=== PATIENT | male | born 1960 | race Two or more races ===

== ENCOUNTER → 2017-05-28 17:04 | Outpatient (CLI) | payer OTHER ==
[~2017-05-28 17:04] MED LIST: COZAAR25 MG PO
== END | disposition home or self-care (01) ==
LOC: RAD 17:04
DX: M25.561 Pain in right knee (principal); M25.572 Pain in left ankle and joints of left foot

== ENCOUNTER 2018-09-12 02:50 | Emergency (ER) | payer OTHER ==
[~2018-09-12] VITALS: Ht 175.3 cm; Wt 86.2 kg
[2018-09-12] MEDS ORDERED: ORPHENADRI30 MG/1 M1 IM (08:00)
[2018-09-12] MEDS ORDERED: TORADOL60 MG IM (08:00)
== END 2018-09-12 08:37 | disposition home or self-care (01) ==
LOC: ER 02:50
DX: S30.0XXA Contusion of lower back and pelvis, initial encounter (principal); S80.02XA Contusion of left knee, initial encounter; S80.01XA Contusion of right knee, initial encounter; W18.39XA Other fall on same level, initial encounter; Y93.89 Activity, other specified; Y92.89 Other specified places as the place of occurrence of the external cause; Y99.8 Other external cause status; N39.0 Urinary tract infection, site not specified

== ENCOUNTER 2019-12-27 09:03 | Outpatient (CLI) | payer OTHER ==
[~2019-12-27 09:03] MED LIST changes: +ORPHENADRI30 MG/1 M1 IM; +TORADOL60 MG IM
== END 2019-12-27 09:11 | disposition home or self-care (01) ==
LOC: LAB 09:03
PROVIDERS: ATTEND Orthopaedic Surgery
DX: M99.02 Segmental and somatic dysfunction of thoracic region (principal); M99.01 Segmental and somatic dysfunction of cervical region; M25.561 Pain in right knee; M85.88 Other specified disorders of bone density and structure, other site; M81.8 Other osteoporosis without current pathological fracture; E21.2 Other hyperparathyroidism; E88.89 Other specified metabolic disorders; E56.1 Deficiency of vitamin K; Z96.651 Presence of right artificial knee joint; E55.9 Vitamin D deficiency, unspecified

== ENCOUNTER 2020-01-10 08:54 | Outpatient (CLI) | payer OTHER | END 2020-01-10 08:57 | disposition home or self-care (01) | LOC: LAB 08:54 | PROVIDERS: ATTEND Orthopaedic Surgery | DX: D64.89 Other specified anemias (principal); M06.4 Inflammatory polyarthropathy ==

== ENCOUNTER 2020-02-07 10:55 | Outpatient (CLI) | payer OTHER ==
[~2020-02-07 10:55] MED LIST changes: -NEURONTIN800 MG PO; -TRAZODONE HCL50 MG
[2020-02-07] MEDS ORDERED: NEURONTIN800 MG PO (12:37)
[2020-02-07] MEDS ORDERED: TRAZODONE HCL50 MG (12:38)
== END 2020-02-07 11:03 | disposition home or self-care (01) ==
LOC: NUCLEAR 10:55
PROVIDERS: ATTEND Orthopaedic Surgery
DX: M25.561 Pain in right knee (principal); Z96.651 Presence of right artificial knee joint; M81.0 Age-related osteoporosis without current pathological fracture
CPT/HCPCS: 78802; 78315; A9503; A9556; 77080

== ENCOUNTER 2020-02-07 14:44 | Emergency (ER) | payer OTHER ==
[~2020-02-07] VITALS: Ht 175.3 cm; Wt 93.0 kg
[~2020-02-07 14:44] MED LIST changes: +NEURONTIN800 MG PO; +TRAZODONE HCL50 MG
== END 2020-02-07 16:21 | disposition home or self-care (01) ==
LOC: ER 14:44
DX: M25.511 Pain in right shoulder (principal); M54.2 Cervicalgia

== ENCOUNTER → 2020-02-07 | Emergency (ER) | payer OTHER ==
[~2020-02-07] VITALS: Ht 175.3 cm; Wt 93.0 kg
[~2020-02-07] MED LIST changes: +NEURONTIN800 MG PO; +TRAZODONE HCL50 MG
== END | disposition left against medical advice (07) ==
LOC: ER 12:05
DX: Z53.20 Procedure and treatment not carried out because of patient's decision for unspecified reasons (principal)

== ENCOUNTER 2020-03-02 13:51 | Outpatient (CLI) | payer OTHER | END 2020-03-02 14:01 | disposition home or self-care (01) | LOC: RAD 13:51 | PROVIDERS: ATTEND Orthopaedic Surgery | DX: M40.47 Postural lordosis, lumbosacral region (principal); M25.551 Pain in right hip; M54.5 Low back pain ==

== ENCOUNTER 2020-03-06 10:53 | Inpatient (IN) | payer OTHER ==
[~2020-03-06] VITALS: Ht 175.3 cm; Wt 94.8 kg
[2020-03-07] MEDS ORDERED: TEMAZEPAM30 MG PO (10:30)
[2020-03-07] MEDS ORDERED: SEROQ PO (10:31)
[2020-03-07] MEDS ORDERED: GRALISE600 MG PO (10:31)
[2020-03-13] MEDS ORDERED: QUETIAPINE FUM100 MG PO (08:53)
== END 2020-03-13 18:28 | DRG 470 ==
LOC: SURH 03-07 08:30 → O/R 03-10 12:45 → SURG 03-10 12:45
PROVIDERS: ADMIT Orthopaedic Surgery; ATTEND Orthopaedic Surgery
PROC: 0QUF07Z Supplement Left Patella with Autologous Tissue Substitute, Open Approach (ICD-10-PCS; 2020-03-10)
PROC: 0SRD0J9 Replacement of Left Knee Joint with Synthetic Substitute, Cemented, Open Approach (ICD-10-PCS; principal; 2020-03-10 11:45)
DX: M17.12 Unilateral primary osteoarthritis, left knee (principal); M85.662 Other cyst of bone, left lower leg; F41.8 Other specified anxiety disorders; B95.61 Methicillin susceptible Staphylococcus aureus infection as the cause of diseases classified elsewhere

== ENCOUNTER 2020-03-06 11:56 | Outpatient (CLI) | payer OTHER ==
[2020-03-07] MEDS ORDERED: TEMAZEPAM30 MG PO (10:30)
[2020-03-07] MEDS ORDERED: GRALISE600 MG PO (10:31)
[2020-03-07] MEDS ORDERED: SEROQ PO (10:31)
== END 2020-03-06 12:02 ==
LOC: RAD 11:56
PROVIDERS: ATTEND Orthopaedic Surgery
DX: Z76.89 Persons encountering health services in other specified circumstances (principal)